=== PATIENT | female | born 1960 | race Caucasian/White ===

== ENCOUNTER → 2019-06-21 | Outpatient (REF) | payer BC ==
[~2019-06-21] MED LIST: PERC5TAB8 PO; levothyroxine PO
== END ==
LOC: M LAB REF 12:26
PROVIDERS: ATTEND Physician Assistant
DX: J02.9 Acute pharyngitis, unspecified (principal)

== ENCOUNTER → 2019-09-25 | Outpatient (REF) | payer BC | LOC: M LAB REF 17:19 | PROVIDERS: ATTEND Physician Assistant | DX: R50.9 Fever, unspecified (principal); Z20.828 Contact with and (suspected) exposure to other viral communicable diseases ==

== ENCOUNTER → 2022-05-23 | Outpatient (CLI) | payer BC | LOC: M WUC 15:41 | PROVIDERS: ATTEND Internal Medicine | DX: R06.1 Stridor (principal) ==

== ENCOUNTER 2024-02-10 12:10 | Emergency (ER) | payer BC ==
[~2024-02-10] VITALS: Ht 160 cm; Wt 85.3 kg
[2024-02-10 12:38] VITALS: TEMP 96.9
[2024-02-10] MEDS: methocarbamoL 500 MG TAB PO ONE (15:47)
[2024-02-10] MEDS: KETOROLAC 60MG 2ML VIAL IM ONE (15:47)
[2024-02-10] MEDS: PERCOCET 5MG/325MG TAB PO ONE (16:58)
[2024-02-10] MEDS: LIDOCAINE 5% (LIDODERM) PATCH TD ONE (18:29)
[2024-02-10] MEDS ORDERED: METH-1164 PO (18:34)
[2024-02-10] MEDS ORDERED: LIDO5DIS41 TOP (18:34)
[2024-02-10 18:41] VITALS: BP 178/82; O2SAT 99
== END 2024-02-10 18:42 | disposition home or self-care (01) ==
LOC: M ED 13:17
DX: M62.838 Other muscle spasm (principal); M47.812 Spondylosis without myelopathy or radiculopathy, cervical region; E03.9 Hypothyroidism, unspecified; Z79.899 Other long term (current) drug therapy
CPT/HCPCS: 70450; 72125; 96372; 99283; J1885